=== PATIENT | female | born 1970 | race Caucasian/White ===

== ENCOUNTER → 2017-01-08 | Emergency (ER) | payer BC ==
[~2017-01-08] VITALS: Ht 157.5 cm; Wt 56.2 kg
[2017-01-08 18:22] VITALS: BP_SYST 140
== END | disposition still patient (30) ==
LOC: SED 18:16
DX: F41.9 Anxiety disorder, unspecified (principal); F32.9 Major depressive disorder, single episode, unspecified
CPT/HCPCS: 99281

== ENCOUNTER 2021-06-19 18:56 | Emergency (ER) | payer BC ==
[~2021-06-19] VITALS: Ht 157.5 cm; Wt 59.0 kg
[2021-06-19 19:35] VITALS: BP_SYST 125
[2021-06-19 19:58] LABS: BASOPHILS # (AUTO) 0.1 K/uL (0.0-0.2); BASOPHILS % (AUTO) 1.1 % (0.0-2.0); EOSINOPHILS # (AUTO) 0.2 K/uL (0.0-0.4); EOSINOPHILS % (AUTO) 2.9 % (0.0-4.0); HEMATOCRIT 40.7 % (36-48); HEMOGLOBIN 13.8 g/dL (12.0-16.0); LYMPHOCYTES # (AUTO) 2.2 K/uL (1.0-5.5); LYMPHOCYTES % (AUTO) 30.2 % (20.5-51.5); MEAN CORPUSCULAR HEMOGLOBIN 31 pg (27-31); MEAN CORPUSCULAR HGB CONC 34 % (32-36); MEAN CORPUSCULAR VOLUME 90 fL (79.0-98.0); MONOCYTES # (AUTO) 0.7 K/uL (0.0-1.0); MONOCYTES % (AUTO) 9.3 % (1.7-9.3); NEUTROPHILS # (AUTO) 4.2 K/uL (1.8-7.7); NEUTROPHILS % (AUTO) 56.5 % (40.0-70.0); PLATELET COUNT (AUTO) 224 K/uL (130-430); RED BLOOD CELL COUNT(AUTO) 4.54 MIL/uL (4.2-6.2); RED CELL DISTRIBUTION WIDTH 12.7 % (9.0-15.0); WHITE BLOOD COUNT (AUTO) 7.4 K/uL (4.8-10.8)
[2021-06-19 20:03] LABS: ANION GAP 7 (5-15); CALCIUM 8.9 mg/dL (8.4-11.0); CHLORIDE 103 mmol/L (98-107); CREATININE 0.88 mg/dL (0.55-1.30); GLUCOSE 101 mg/dL (70-99); POTASSIUM 3.8 mmol/L (3.5-5.1); SODIUM SERUM 137 mmol/L (136-145); UREA NITROGEN, BLOOD 15 mg/dL (8-21)
[2021-06-19 20:04] LABS: GFR AFRICAN AMERICAN 87 mL/min (>90)
[2021-06-19 20:08] LABS: ALANINE AMINOTRANSFERASE 20 U/L (12-78); ALBUMIN 3.5 g/dL (3.4-4.8); ASPARTATE AMINOTRANSFERASE 17 U/L (10-37)
[2021-06-19 20:09] LABS: C-REACTIVE PROTEIN QUANT < 0.2 mg/dL (0-0.5); TOTAL BILIRUBIN < 0.1 mg/dL (0.0-1.0)
[2021-06-19] MEDS ORDERED: IBUP-1969 PO (20:31)
[2021-06-19] MEDS ORDERED: HYDR-3917 PO (20:31)
--- NOTE | 2021-06-19 20:39 | NUR ---
50 YR OLD FEMLE WITH COMPLAINT OF RIGHT SIDED EAR PAIN FOR THREE DAYS. PT REPORTS FEEELING FULLNESS IN BOTH EARS. PT DENIES ANY SOB OR N/V. MD AT THE BEDSIDE FOR EVAL. PENDING DISPOSITION
--- NOTE | 2021-06-19 20:40 | NUR ---
PT PROVIDED WITH DISCHARGE INSTRUCTIONS AND PRESCRIPTION. PT ENCOURAGED TO FOLLOW UP WITH PRIMARY CARE DOCTOR WITHING 3 TO 5 DAYS. PT PROVIDED WITH OFF WORK NOTE FOR ONE DAY. PT VERBALIZED UNDERSTANDING. PT DISCHARGED WITH ALL BELONGINGS IN STABLE CONDITION.
== END 2021-06-19 20:50 | disposition home or self-care (01) ==
LOC: SED 18:56
DX: R51.9 Headache, unspecified (principal)
CPT/HCPCS: 36415; 70450-TC; 76376; 80053; 81025; 85025; 86140; 99284